=== PATIENT | male | born 1995 | race Caucasian/White ===

== ENCOUNTER 2021-07-28 21:00 | Inpatient (IN) | payer OTHER ==
[~2021-07-28] VITALS: Ht 167.6 cm; Wt 88.4 kg
[2021-07-28] MEDS ORDERED: NORVASC5 MG PO (22:46)
--- NOTE | 2021-07-28 23:44 | NUR ---
POISON CONTROL UPDATED AT THIS TIME ON PATIENTS LABS AND ASESSMENT FINDINGS. REQUEST TO INCLUDE ASA LEVEL WITH AM LABS.
--- NOTE | 2021-07-29 00:03 | NUR ---
SPOKE WITH POISON CONTROL REGARDING PT LABS AND PRESENTATION. POISON CONTROL STATES THAT PT DOES NOT MEET CRITERIA FOR ACETYLCYSTEINE AND RECOMMENT TO DISCONTINUE ACETYLCYSTEINE AND TO CHECK ASPIRIN LEVEL EVERY [address] PAYNE NOTIFIED OF RECOMMENDATIONS. WILL CONTINUE ACETYLCYSTEINE INFUSION AND CHECK ASPIRIN WITH 0600 LABS PER MD ORDERS.
--- NOTE | 2021-07-29 01:38 | NUR ---
PT DENIES HEADACHE AND NAUSEA. LAYS IN BED VISITING WITH OFFICER AT BEDSIDE. HANDS AND FEET REMAIN IN HANDCUFFS. BRADYCARDIC AT 46-57, PT REPORTS THIS BASELINE. NO NEEDS AT THIS TIME. WILL CONTINUE TO MONITOR.
--- NOTE | 2021-07-29 03:00 | NUR ---
PT SLEEPING. NO NEEDS AT THIS TIME.
--- NOTE | 2021-07-29 06:03 | NUR ---
PT CONTIUES TO DENY ANY PAIN OR GI UPSET. WILL CONTINUE TO MONITOR.
--- NOTE | 2021-07-29 07:43 | NUR ---
PATIENT RESTING IN BED. DENIES ANY NEEDS OR CONCERNS. VS STABLE.
--- NOTE | 2021-07-29 08:40 | NUR ---
PATIENT AWAKE AT SIDE OF BED. 2GUARDS IN ROOM. VITALS CHARTED. CALL LIGHT IN REACH, NO OTHER NEEDS AT THIS TIME
--- NOTE | 2021-07-29 09:22 | NUR ---
UPDATE GIVEN TO POISON CONTROL. THE RECOMMENDATION IS TO STOP TREATMENT. MD AWARE.
--- NOTE | 2021-07-29 10:02 | NUR ---
MD VERBAL ORDER RECEIVED TO DC IVF, CONTINUE MYCOMYST DRIP.
--- NOTE | 2021-07-29 10:20 | NUR ---
AMBULATED TO BR TO HAVE BM, STABLE ON FEET. DENIES DIZZINESS. BACK TO BED W/O INCIDENT.
--- NOTE | 2021-07-29 12:15 | NUR ---
VERBALIZED HER PLAN TO RECHECK LABS 1 HOUR AFTER INFUSION AND EVALUATE FOR DISCHANGE OR CONTINUED MONITORING. PATIENT IS EATING LUNCH. DENIED ANY CONCERNS. NO PAIN OR NAUSEA. VS STABLE. IV INFUSION CONTINUES, SITE WNL.
--- NOTE | 2021-07-29 12:34 | NUR ---
Spoke with pt, he denies needs. Unintentional poisoning with acetamin ofen attempting to control headach of 4 days. Plans on return to [facility] discharge.
--- NOTE | 2021-07-29 12:43 | NUR ---
Medications reconciled
--- NOTE | 2021-07-29 13:14 | EKG ---
[facility] [address] [facility] [place], [place] [address] Signed Sinus bradycardia Otherwise normal ECG No previous ECGs available Confirmed by ALE PAYNE MD ([id number]) on 07/29/2021 1:14:35 PM Electronically Signed By: ALE PAYNE MD 07/29/21 1314 PATIENT NAME: JUNIE ROQUE Electrocardiogram DATE OF : [birth year] PHYSICIAN: ALE PAYNE MD REPORT #: [id number] REPORT IS CONFIDENTIAL AND NOT TO BE RELEASED WITHOUT AUTHORIZATION
--- NOTE | 2021-07-29 17:12 | NUR ---
PATIENT UP TO VOID. CLEAR YELLOW URINE. PATIENT DENIED ANY NEEDS. VS STABLE. IV INFUSION CONTINUES.
--- NOTE | 2021-07-29 17:45 | NUR ---
TELEPHONE ORDER FROM DR. PAYNE TO RUN LABS AT 1800 EVEN WHEN INFUSION WILL NOT BE FINISHED.
--- NOTE | 2021-07-29 18:00 | NUR ---
LABS DRAWN. DINNER PROVIDED. NO NEEDS AT THIS TIME.
--- NOTE | 2021-07-29 18:43 | NUR ---
PATIENT FINISHED DINNER. DENIES ANY CONCERNS.
== END 2021-07-29 19:51 | disposition home or self-care (01) | DRG 918 ==
LOC: ED 21:00 → CCU 22:54
PROVIDERS: ADMIT Internal Medicine; ATTEND Internal Medicine
DX: T39.1X1A Poisoning by 4-Aminophenol derivatives, accidental (unintentional), initial encounter (principal); B19.20 Unspecified viral hepatitis C without hepatic coma; Z20.822 Contact with and (suspected) exposure to COVID-19; I10 Essential (primary) hypertension; G43.909 Migraine, unspecified, not intractable, without status migrainosus; Z88.6 Allergy status to analgesic agent; Z79.899 Other long term (current) drug therapy; X58.XXXA Exposure to other specified factors, initial encounter
CPT/HCPCS: 80048; 80053; 80076; 81001; 83735; 85025; 85610; 93005; 93010; G0480; J0132; J0780; J1200; J1885; J3480; J7030; J7060; J7070; U0003

== ENCOUNTER 2024-07-19 23:00 | Emergency (ER) | payer OTHER ==
[~2024-07-19] VITALS: Ht 167.6 cm; Wt 84.4 kg
[~2024-07-19 23:00] MED LIST: NORVASC5 MG PO
[2024-07-19] MEDS ORDERED: PROPRANOLOL HCL10 MG (23:03)
[2024-07-19] MEDS ORDERED: KETOROLAC60 MG/2 M1 (23:04)
[2024-07-19] MEDS ORDERED: LACTATED RINGER'S 1,000 ML IV ONE (23:15)
[2024-07-19] MEDS ORDERED: PROCHLORPERAZINE EDISYLATE 10 MG/2 ML VIAL IV ONE (23:15)
[2024-07-19] MEDS ORDERED: diphenhydrAMINE HCL 50 MG/ML VIAL IV ONE (23:15)
[2024-07-19] MEDS ORDERED: KETOROLAC TROMETHAMINE 30 MG/ML VIAL IV ONE (23:15)
[2024-07-19 23:18] LABS: BASOPHILS 0.3 % (0-2); EOSINOPHILS 1.1 % (0-6); HEMATOCRIT 42.5 % (35.0-50.0); HEMOGLOBIN 14.5 g/dL (12.0-18.0); LYMPHOCYTES 35.2 % (24-44); MCH 28.7 (27-36); MCHC 34.1 g/dl (30-36); MCV 84.2 fl (81-99); MONOCYTES 8.6 % (0-12); NEUTROPHILS 54.8 % (39-80); PLATELET COUNT 146 K/uL (140-440); RBC 5.05 M/ul (4.3-5.7); RDW 12.4 (10.5-15.0)
[2024-07-19 23:42] LABS: ALBUMIN 4.2 g/dL (3.4-5.0); ALBUMIN/GLOBULIN RATIO 1.24 (1.1-2.4); ANION GAP 11.5 (7-21); BILIRUBIN, TOTAL 0.2 ng/dL (0.2-1.0); BUN/CREATININE RATIO 24.56 (6.0-28.6); CALCIUM 9.4 mg/dL (8.5-10.1); CREATININE, SERUM 1.14 mg/dL (0.70-1.30); POTASSIUM 3.5 mmol/L (3.5-5.1); PROTEIN, TOTAL 7.6 g/dL (6.4-8.2)
[2024-07-20 00:28] LABS: BILIRUBIN, URINE NEGATIVE (negative); BLOOD/HGB, URINE NEGATIVE (Negative); KETONE, URINE NEGATIVE (Negative); LEUK ESTERASE, URINE NEGATIVE (negative); NITRITE, URINE NEGATIVE (negative)
[2024-07-20 00:39] LABS: AMPHETAMINES, URINE NEGATIVE (NEGATIVE); BARBITURATES, URINE NEGATIVE (NEGATIVE); BENZODIAZEPINE, URINE NEGATIVE (NEGATIVE); BUPRENORPHINE, URINE POSITIVE (NEGATIVE); CANNABINOID, URINE NEGATIVE (NEGATIVE); COCAINE, URINE NEGATIVE (NEGATIVE); ECSTASY, URINE NEGATIVE (NEGATIVE); FENTANYL, URINE NEGATIVE (NEGATIVE); METHADONE, URINE NEGATIVE (NEGATIVE); OPIATES, URINE NEGATIVE (NEGATIVE); OXYCODONE, URINE NEGATIVE (NEGATIVE); PHENCYCLIDINE, URINE NEGATIVE (NEGATIVE)
[2024-07-20 01:11] VITALS: BP 122/62
== END 2024-07-20 01:11 | disposition other institution, planned readmission (95) ==
LOC: ED 23:00
PROVIDERS: Internal Medicine
DX: G43.919 Migraine, unspecified, intractable, without status migrainosus (principal); Z88.5 Allergy status to narcotic agent; Z79.899 Other long term (current) drug therapy
CPT/HCPCS: 36415; 80053; 80307; 81003; 85025; 96374; 96375; 99283-25; J0780; J1200; J1885; J7121